=== PATIENT | male | born 1950 | race Caucasian/White ===

== ENCOUNTER 2018-08-22 07:28 | Day surgery (SDC) | payer MEDICARE, OTHER ==
[2018-08-22] MEDS ORDERED: PROPOFOL 500 MG/50 ML EMU IV ONE (07:42)
[2018-08-22] MEDS ORDERED: LIDOCAINE HCL 1% MPF 30 SOL ONE (07:42)
[2018-08-22] MEDS ORDERED: PROPOFOL 10 MG/ML 200 MG/20 ML EMU IV ONE (09:09)
[2018-08-22 09:33] VITALS: O2SAT 96
== END 2018-08-22 09:56 | disposition home or self-care (01) | DRG 951 ==
LOC: SURG 07:28
PROVIDERS: ATTEND Surgery
DX: Z12.11 Encounter for screening for malignant neoplasm of colon (principal); D12.5 Benign neoplasm of sigmoid colon; D12.3 Benign neoplasm of transverse colon; Z80.0 Family history of malignant neoplasm of digestive organs
CPT/HCPCS: J2001; J2704